=== PATIENT | female | born 1930 | race African-American/Black ===

== ENCOUNTER 2016-09-04 02:21 | Inpatient (IN) | payer BC ==
[~2016-09-04] VITALS: Ht 170.2 cm; Wt 99.1 kg
[2016-09-04 03:09] LABS: EOSINOPHIL (%) 0.7 % (0-5); EOSINOPHIL COUNT 0.1 K/uL (0-0.3); IMMATURE GRANULOCYTE (%) 0.4 % (0.0-0.7); LYMPHOCYTE COUNT 2.5 K/uL (1.0-2.8); MCH 29.7 PG (29.0-34.0); MCHC 32.9 G/DL (30.0-36.0); MCV 90.3 FL (83-99); MEAN PLAT.VOLUME 11.7 uM^3 (9.5-12.4); MONOCYTE (%) 8.3 % (3-12); MONOCYTE COUNT 0.7 K/uL (0-0.8); NEUTROPHIL (%) 60.2 % (45-76); PLATELET COUNT 224 K/uL (156-360); RBC DIS.WIDTH-CV 14.4 % (11.8-14.6); RBC DIS.WIDTH-SD 47.2 % (39-53); RED BLOOD COUNT 4.21 M/uL (3.80-5.20); WHITE BLOOD COUNT 8.3 K/uL (4.1-10.2)
[2016-09-04 03:19] LABS: CHLORIDE 109 mEq/L (99-109); SODIUM 144 mEq/L (136-147)
[2016-09-04 03:21] LABS: GLUCOSE 166 mg/dL (70-99)
[2016-09-04 03:22] LABS: ANION GAP 9 MEQ/L (2-14)
[2016-09-04 03:24] LABS: ADD MIUA? YES; BILIRUBIN NEGATIVE; BLOOD NEGATIVE; COLOR AMBER ((YELLOW)); GLUCOSE (STRIP) NEGATIVE; KETONES 20; LEUKOCYTES NEGATIVE; NITRITE NEGATIVE; PROTEIN (STRIP) 100; SPECIFIC GRAVITY 1.027 (1.000-1.030)
[2016-09-04 03:25] LABS: GFR ESTIMATE (CALCULATED) > 59 mL/min/
[2016-09-04 03:26] LABS: UREA NITROGEN (BUN) 17 mg/dL (9-23)
[2016-09-04 04:14] LABS: EPITHELIAL CELLS 1+ /HPF; MUCUS 3+ /LPF; RED BLOOD CELLS NONE SEEN /HPF (0-5); WHITE BLOOD CELLS 0-5 /HPF (0-5)
[2016-09-04 04:15] LABS: BACTERIA NONE SEEN /HPF; UCUL ADDED? NO
[2016-09-04 06:14] LABS: POINT-OF-CARE METER ID UU13113702
[2016-09-04] MEDS ORDERED: AMLODIPINE BESYL5 MG PO (11:29)
[2016-09-04] MEDS ORDERED: NAPROXEN500 MG PO (11:29)
[2016-09-04] MEDS ORDERED: TRAMADOL HCL50 MG PO (11:30)
[2016-09-04] MEDS ORDERED: TENORETIC 101 TABLET PO (11:30)
[2016-09-04] MEDS ORDERED: METFORMIN HCL500 M1 PO (11:30)
[2016-09-04] MEDS ORDERED: ASPIR-LOW81 MG PO (11:31)
[2016-09-04] MEDS ORDERED: LATANOPROST2.5 ML BOTH EYES (11:31)
[2016-09-04] MEDS ORDERED: COMPLERA TABLE1 EACH PO (11:31)
[2016-09-04] MEDS ORDERED: TIMOPTIC-0100 DROP/1 BOTH EYES (11:32)
[2016-09-04] MEDS ORDERED: SIMBRINZA 1%-0.28 ML BOTH EYES (11:34)
[2016-09-04 11:46] LABS: POINT-OF-CARE METER ID UU13113702
[2016-09-04 16:02] VITALS: BP 121/74
[2016-09-04 20:00] VITALS: BP 124/84
[2016-09-04 22:21] LABS: POINT-OF-CARE METER ID UU14174225
[2016-09-05 01:27] LABS: POINT-OF-CARE METER ID UU14188625
[2016-09-05 03:50] VITALS: BP 142/94
[2016-09-05 08:05] VITALS: BP 167/90
[2016-09-05 11:16] LABS: POINT-OF-CARE METER ID UU14188625
[2016-09-05 12:38] VITALS: BP 178/110
[2016-09-05 14:30] LABS: HEMATOCRIT 37.1 % (36.0-46.0); MCH 30.3 PG (29.0-34.0); MCHC 32.3 G/DL (30.0-36.0); MCV 93.7 FL (83-99); MEAN PLAT.VOLUME 12.8 uM^3 (9.5-12.4); PLATELET COUNT 200 K/uL (156-360); RBC DIS.WIDTH-CV 14.3 % (11.8-14.6); RBC DIS.WIDTH-SD 49.5 % (39-53); RED BLOOD COUNT 3.96 M/uL (3.80-5.20); WHITE BLOOD COUNT 7.7 K/uL (4.1-10.2)
[2016-09-05 14:54] LABS: POINT-OF-CARE METER ID UU14188625
[2016-09-05 15:22] LABS: ANION GAP 11 MEQ/L (2-14); CHLORIDE 108 MEQ/L (99-109); GFR ESTIMATE (CALCULATED) > 59 mL/min/; POTASSIUM 3.3 MEQ/L (3.7-5.4); SAMPLE HEMOLYSIS CHECK 0; SAMPLE ICTERIC CHECK 0; SAMPLE LIPEMIA CHECK 0; SODIUM 147 MEQ/L (136-147); UREA NITROGEN (BUN) 6 mg/dL (9-23)
[2016-09-05 15:25] LABS: GLUCOSE 100 mg/dL (70-99)
[2016-09-05 18:35] LABS: POINT-OF-CARE METER ID UU14188625
[2016-09-05 19:50] VITALS: BP 155/102
[2016-09-05 21:35] LABS: POINT-OF-CARE METER ID UU14188625
[2016-09-06 02:22] LABS: POINT-OF-CARE METER ID UU14174225
[2016-09-06 06:18] LABS: POINT-OF-CARE METER ID UU14174225
[2016-09-06 07:53] VITALS: BP 118/66
[2016-09-06 10:29] LABS: POINT-OF-CARE METER ID UU14174225
[2016-09-06 11:07] VITALS: BP 99/68
[2016-09-06 14:39] LABS: POINT-OF-CARE METER ID UU14174225
[2016-09-06 15:33] VITALS: BP 109/63
[2016-09-06 19:58] VITALS: BP 103/56
[2016-09-06 21:38] LABS: POINT-OF-CARE METER ID UU14174225
[2016-09-06 23:21] VITALS: BP 126/82
[2016-09-07 04:57] VITALS: BP 106/69
[2016-09-07 07:57] VITALS: BP 130/73
[2016-09-07 08:03] LABS: POINT-OF-CARE METER ID UU14174225
[2016-09-07 10:13] LABS: HEMATOCRIT 34.4 % (36.0-46.0); MCH 29.6 PG (29.0-34.0); MCV 92.7 FL (83-99); MEAN PLAT.VOLUME 12.7 uM^3 (9.5-12.4); PLATELET COUNT 167 K/uL (156-360); RBC DIS.WIDTH-CV 14.6 % (11.8-14.6); RBC DIS.WIDTH-SD 50.1 % (39-53); RED BLOOD COUNT 3.71 M/uL (3.80-5.20); WHITE BLOOD COUNT 7.3 K/uL (4.1-10.2)
[2016-09-07 10:16] LABS: CHLORIDE 112 mEq/L (99-109); POTASSIUM 3.8 mEq/L (3.7-5.4); SODIUM 147 mEq/L (136-147)
[2016-09-07 10:17] LABS: GLUCOSE 117 mg/dL (70-99)
[2016-09-07 10:19] LABS: ANION GAP 8 MEQ/L (2-14)
[2016-09-07 10:21] LABS: GFR ESTIMATE (CALCULATED) > 59 mL/min/
[2016-09-07 10:22] LABS: UREA NITROGEN (BUN) 15 mg/dL (9-23)
[2016-09-07 11:57] LABS: POINT-OF-CARE METER ID UU14174225
[2016-09-07 12:19] VITALS: BP 138/74
[2016-09-07 15:49] VITALS: BP 145/82
[2016-09-07 17:03] LABS: POINT-OF-CARE METER ID UU14174225
[2016-09-07 20:23] VITALS: BP 146/91
[2016-09-07 21:26] LABS: POINT-OF-CARE METER ID UU14174225
[2016-09-08 00:29] VITALS: BP 138/71
[2016-09-08 08:13] VITALS: BP 139/84
[2016-09-08 08:18] LABS: POINT-OF-CARE METER ID UU14188625
[2016-09-08 11:40] VITALS: BP 152/70
[2016-09-08 11:45] LABS: POINT-OF-CARE METER ID UU14188625
[2016-09-08 11:51] LABS: HIV RNA QUANT LOG10 RESULT < 1.30 Log(10) (<1.30); HIV RNA QUANT VIRAL LOAD < 20 copy/mL (<20)
[2016-09-08 20:14] VITALS: BP 133/81
[2016-09-08 22:40] LABS: POINT-OF-CARE METER ID UU13113717
[2016-09-09] VITALS (7 sets, daily range): BP systolic 114–149; BP diastolic 62–91
[2016-09-09 12:01] LABS: POINT-OF-CARE METER ID UU14188625
[2016-09-09 16:43] LABS: POINT-OF-CARE METER ID UU14188625
[2016-09-09 21:36] LABS: POINT-OF-CARE METER ID UU14188625
[2016-09-10 08:18] VITALS: BP 128/88
[2016-09-10 12:19] VITALS: BP 130/87
[2016-09-10 16:16] VITALS: BP 127/87
[2016-09-10 17:52] LABS: EOSINOPHIL (%) 5.9 % (0-5); EOSINOPHIL COUNT 0.3 K/uL (0-0.3); HEMATOCRIT 32.6 % (36.0-46.0); IMMATURE GRANULOCYTE (%) 0.3 % (0.0-0.7); INSTRUMENT ABS NEUTROPHIL CT 1.8 K/uL; LYMPHOCYTE COUNT 3.1 K/uL (1.0-2.8); MCH 30.9 PG (29.0-34.0); MCHC 33.4 G/DL (30.0-36.0); MCV 92.4 FL (83-99); MEAN PLAT.VOLUME 12.7 uM^3 (9.5-12.4); MONOCYTE COUNT 0.5 K/uL (0-0.8); NEUTROPHIL (%) 31.6 % (45-76); NEUTROPHIL COUNT 1.8 K/uL (1.8-6.4); PLATELET COUNT 178 K/uL (156-360); RBC DIS.WIDTH-CV 14.3 % (11.8-14.6); RBC DIS.WIDTH-SD 48.2 % (39-53); RED BLOOD COUNT 3.53 M/uL (3.80-5.20); WHITE BLOOD COUNT 5.8 K/uL (4.1-10.2)
[2016-09-10 18:06] LABS: PROTHROMBIN TIME 10.4 (9.2-11.2); PTT 28.7 (25-32)
[2016-09-10 20:17] VITALS: BP 112/66
[2016-09-11 07:17] VITALS: BP 140/79
[2016-09-11 08:25] LABS: GFR ESTIMATE (CALCULATED) > 59 mL/min/; UREA NITROGEN (BUN) 10 mg/dL (9-23)
[2016-09-11 11:11] VITALS: BP 138/73
[2016-09-11 15:15] VITALS: BP 126/71
[2016-09-11 19:43] VITALS: BP 117/70
[2016-09-11 23:57] VITALS: BP 131/78
[2016-09-12 07:52] VITALS: BP 125/77
[2016-09-12 17:03] VITALS: BP 116/70
[2016-09-12 19:56] VITALS: BP 112/67
[2016-09-13 07:47] VITALS: BP 144/89
[2016-09-13] MEDS ORDERED: HALDOL1 MG PO (14:53)
[2016-09-13] MEDS ORDERED: TRAZODONE HCL50 MG PO (14:53)
[2016-09-13] MEDS ORDERED: HYGROTON25 MG PO (14:53)
[2016-09-13] MEDS ORDERED: HALDOL2 MG PO (14:53)
[2016-09-13 15:18] VITALS: BP 117/72
[2016-09-13 22:24] LABS: POINT-OF-CARE METER ID UU13113717
[2016-09-14 00:05] VITALS: BP 134/74
[2016-09-14 08:26] VITALS: BP 132/72
[2016-09-14 08:54] LABS: POINT-OF-CARE METER ID UU14174225
[2016-09-14 12:18] LABS: POINT-OF-CARE METER ID UU14174225
[2016-09-14] MEDS ORDERED: TRAZODONE HCL50 MG PO (16:00)
[2016-09-14] MEDS ORDERED: HALDOL1 MG PO (16:00)
[2016-09-14] MEDS ORDERED: HYGROTON25 MG PO (16:00)
[2016-09-14] MEDS ORDERED: HALDOL2 MG PO (16:00)
[2016-09-14 17:17] LABS: POINT-OF-CARE METER ID UU14174225
== END 2016-09-14 19:30 | disposition home or self-care (01) | DRG 969 ==
LOC: EME 02:21 → 5SOUTH 04:14 → EDOF 04:14 → 5SOUTH 14:50
PROVIDERS: Emergency Medicine; Internal Medicine; Internal Medicine Nephrology; Nurse Practitioner Adult Health; Physician Assistant Medical; Student in an Organized Health Care Education/Training Program
PROC: 06H03DZ Insertion of Intraluminal Device into Inferior Vena Cava, Percutaneous Approach (ICD-10-PCS; principal; 2016-09-13)
DX: G93.40 Encephalopathy, unspecified (principal); B20 Human immunodeficiency virus [HIV] disease; F02.81 Dementia in other diseases classified elsewhere, unspecified severity, with behavioral disturbance; I82.431 Acute embolism and thrombosis of right popliteal vein; E87.6 Hypokalemia; D25.9 Leiomyoma of uterus, unspecified; E11.9 Type 2 diabetes mellitus without complications; E78.5 Hyperlipidemia, unspecified; F29 Unspecified psychosis not due to a substance or known physiological condition; I10 Essential (primary) hypertension; M19.90 Unspecified osteoarthritis, unspecified site; E66.9 Obesity, unspecified; Z68.34 Body mass index [BMI] 34.0-34.9, adult; Z79.4 Long term (current) use of insulin; Z91.81 History of falling
CPT/HCPCS: 70450; 70553; 71010; 74177; 76705; 80048; 81003; 82565; 82607; 82948; 83605; 84443; 84520; 85025; 85027; 85610; 85730; 86355 90; 86359 90; 86360 90; 87040; 87086; 87536; 93971; 97530 GO; 99281; 99285; C1769; C1894; J0696; J1200; J1630; J1644; J1815; J2060; J2250; J3010; J3480; J7030; J7050